=== PATIENT | female | born 1945 | race Caucasian/White ===

== ENCOUNTER 2017-01-04 19:19 | Inpatient (IN) | payer MEDICARE, OTHER ==
[2017-01-04] MEDS ORDERED: OXYBUTYNIN CHLOR5 M2 PO (19:23)
[2017-01-04] MEDS ORDERED: XANAX0.25 M1 PO (19:23)
[2017-01-04] MEDS ORDERED: BONIVA150 M1 PO (19:23)
[2017-01-04] MEDS ORDERED: ZOCOR80 M1 PO (19:24)
[2017-01-04] MEDS ORDERED: AMBIEN5 M1 PO (19:24)
[2017-01-04] MEDS ORDERED: ZOLOFT100 M1 PO (19:24)
[2017-01-04 19:38] LABS: BASO % 0.4 % (0-2); EOS % 2.8 % (0-7); EOSINOPHIL ABSOLUTE COUNT 0.2 tho/cmm (0.0-0.7); HCT-HEMATOCRIT 37.5 % (34.0-49.0); HGB-HEMOGLOBIN 12.7 gm/dl (12.0-15.5); IMMATURE GRANULOCYTES ABSOLUTE 0.02 tho/cmm (0-0.03); IMMATURE GRANULOCYTES PERCENT 0.2 % (0-0.3); LYMPH % 23.5 % (20-45); MCH (MEAN CORPUSCULAR HGB) 29.5 pg (28.0-32.0); MCHC MEAN CORPUSCULAR HGB CONC 33.9 % (32.0-36.0); MCV (MEAN CELL VOLUME) 87.2 fl (82.0-96.0); MEAN PLATELET VOLUME 9.6 cmc (9.4-12.4); MONO % 11.2 % (0-12); NEUTROPHIL ABSOLUTE COUNT 5.3 tho/cmm (1.6-8.0); NEUTROPHIL-AUTOMATED 5.3 tho/cmm (1.6-8.0); NEUTROPHILS % 61.9 % (40-80); PLATELET COUNT 202 tho/cmm (150-450); RED CELL DISTRIBUTION WIDTH 12.2 % (12.4-16.4); WHITE BLOOD COUNT 8.5 tho/cmm (4.0-10.0)
[2017-01-04 19:59] LABS: ANION GAP 11 mmol/L (0-20); BLOOD UREA NITROGEN 14 mg/dl (6-24); CALCIUM 9.7 mg/dl (8.5-10.5); CARBON DIOXIDE-VENOUS 27 mmol/L (22-32); CHLORIDE 103 mmol/l (96-110); CREATININE 0.89 mg/dl (0.50-1.10); GLUCOSE 112 mg/dL (70-110); POTASSIUM 4.2 mmol/L (3.7-5.1); SODIUM 137 mmol/L (135-145); eGFR VALUE FOR BLACK 75 mL/Min
[2017-01-05 05:20] LABS: BASO % 0.1 % (0-2); EOS % 0.6 % (0-7); EOSINOPHIL ABSOLUTE COUNT 0.1 tho/cmm (0.0-0.7); HGB-HEMOGLOBIN 12.1 gm/dl (12.0-15.5); IMMATURE GRANULOCYTES ABSOLUTE 0.01 tho/cmm (0-0.03); IMMATURE GRANULOCYTES PERCENT 0.1 % (0-0.3); LYMPH % 11.1 % (20-45); LYMPH ABSOLUTE COUNT 0.9 tho/cmm (0.8-4.5); MCH (MEAN CORPUSCULAR HGB) 29.6 pg (28.0-32.0); MCHC MEAN CORPUSCULAR HGB CONC 33.6 % (32.0-36.0); MEAN PLATELET VOLUME 9.8 cmc (9.4-12.4); MONO % 2.5 % (0-12); MONOCYTE ABSOLUTE COUNT 0.2 tho/cmm (0.0-1.2); NEUTROPHILS % 85.6 % (40-80); PLATELET COUNT 191 tho/cmm (150-450); RED BLOOD COUNT 4.09 mil/cmm (4.00-5.20); RED CELL DISTRIBUTION WIDTH 12.2 % (12.4-16.4); WHITE BLOOD COUNT 8.1 tho/cmm (4.0-10.0)
[2017-01-05 05:31] LABS: ANION GAP 11 mmol/L (0-20); BLOOD UREA NITROGEN 12 mg/dl (6-24); CALCIUM 8.7 mg/dl (8.5-10.5); CARBON DIOXIDE-VENOUS 27 mmol/L (22-32); CHLORIDE 104 mmol/l (96-110); CREATININE 0.86 mg/dl (0.50-1.10); GLUCOSE 133 mg/dL (70-110); POTASSIUM 4.4 mmol/L (3.7-5.1); SODIUM 138 mmol/L (135-145); eGFR VALUE FOR BLACK 78 mL/Min
--- NOTE | 2017-01-05 07:54 | NUR ---
VN ROUNDING AT 0740-PATIENT IS LAYING IN BED COMFORTABLY DENIES PAIN AT THIS TIME AND STATES THAT IT IS STAYING CONTROLLED. PATIENT STATES THAT SHE WAS NOT ABLE TO SLEEP WELL DUE TO OUR BEDS REPOSITIONING ON HER. I LET HER KNOW THE NURSES CAN ADJUST THE BED FOR ABOUT 6 HOURS AND TO LET THEM KNOW TO DO THAT TONIGHT BEFORE SHE GOES TO SLEEP. SHE HAD NO OTHER QUESTIONS OR CONCERNS AT THIS TIME
[2017-01-06] MEDS ORDERED: VIBRAMYCIN100 M1 PO (10:19)
[2017-01-06] MEDS ORDERED: CEFTIN250 MG/51 PO (10:21)
[2017-01-06] MEDS ORDERED: PREDNISONE10 M1 PO (10:22)
== END 2017-01-06 10:53 | DRG 195 ==
LOC: EDMED 19:19 → EMR2 22:37 → 5WD 01-05
PROVIDERS: Emergency Medicine; Internal Medicine; ADMIT Hospitalist
DX: J18.1 Lobar pneumonia, unspecified organism (principal); F32.9 Major depressive disorder, single episode, unspecified; F41.9 Anxiety disorder, unspecified; Z85.3 Personal history of malignant neoplasm of breast; E78.5 Hyperlipidemia, unspecified; R32 Unspecified urinary incontinence; R07.81 Pleurodynia
CPT/HCPCS: J1170; J1650; J2270; J2405; J2543; J2930; J7050; Q9967

== ENCOUNTER 2017-03-03 17:03 | Inpatient (IN) | payer MEDICARE, OTHER ==
[~2017-03-03 17:03] MED LIST: AMBIEN5 M1 PO; BONIVA150 M1 PO; CEFTIN250 MG/51 PO; OXYBUTYNIN CHLOR5 M2 PO; PREDNISONE10 M1 PO; VIBRAMYCIN100 M1 PO; XANAX0.25 M1 PO; ZOCOR80 M1 PO; ZOLOFT100 M1 PO
[2017-03-03] MEDS ORDERED: MYORISAN40 MG PO (17:15)
[2017-03-03 17:25] LABS: BASO % 0.4 % (0-2); EOS % 2.6 % (0-7); EOSINOPHIL ABSOLUTE COUNT 0.2 tho/cmm (0.0-0.7); HCT-HEMATOCRIT 34.1 % (34.0-49.0); HGB-HEMOGLOBIN 11.8 gm/dl (12.0-15.5); IMMATURE GRANULOCYTES ABSOLUTE 0.04 tho/cmm (0-0.03); IMMATURE GRANULOCYTES PERCENT 0.5 % (0-0.3); LYMPH % 24.2 % (20-45); LYMPH ABSOLUTE COUNT 1.9 tho/cmm (0.8-4.5); MCH (MEAN CORPUSCULAR HGB) 29.6 pg (28.0-32.0); MCHC MEAN CORPUSCULAR HGB CONC 34.6 % (32.0-36.0); MCV (MEAN CELL VOLUME) 85.7 fl (82.0-96.0); MEAN PLATELET VOLUME 9.9 cmc (9.4-12.4); MONO % 16.6 % (0-12); MONOCYTE ABSOLUTE COUNT 1.3 tho/cmm (0.0-1.2); NEUTROPHIL ABSOLUTE COUNT 4.3 tho/cmm (1.6-8.0); NEUTROPHIL-AUTOMATED 4.3 tho/cmm (1.6-8.0); NEUTROPHILS % 55.7 % (40-80); PLATELET COUNT 184 tho/cmm (150-450); RED BLOOD COUNT 3.98 mil/cmm (4.00-5.20); RED CELL DISTRIBUTION WIDTH 12.9 % (12.4-16.4); WHITE BLOOD COUNT 7.7 tho/cmm (4.0-10.0)
[2017-03-03 17:56] LABS: ANION GAP 12 mmol/L (0-20); BLOOD UREA NITROGEN 9 mg/dl (6-24); CALCIUM 9.4 mg/dl (8.5-10.5); CARBON DIOXIDE-VENOUS 25 mmol/L (22-32); CHLORIDE 107 mmol/l (96-110); CREATININE 0.83 mg/dl (0.50-1.10); GLUCOSE 144 mg/dL (70-110); SODIUM 140 mmol/L (135-145); eGFR VALUE FOR BLACK 82 mL/Min
[2017-03-03 18:09] LABS: POTASSIUM 4.1 mmol/L (3.7-5.1)
[2017-03-04 04:52] LABS: BASO % 0.6 % (0-2); EOSINOPHIL ABSOLUTE COUNT 0.2 tho/cmm (0.0-0.7); HCT-HEMATOCRIT 31.6 % (34.0-49.0); HGB-HEMOGLOBIN 10.5 gm/dl (12.0-15.5); IMMATURE GRANULOCYTES ABSOLUTE 0.02 tho/cmm (0-0.03); IMMATURE GRANULOCYTES PERCENT 0.3 % (0-0.3); LYMPH % 25.9 % (20-45); LYMPH ABSOLUTE COUNT 1.9 tho/cmm (0.8-4.5); MCH (MEAN CORPUSCULAR HGB) 28.8 pg (28.0-32.0); MCHC MEAN CORPUSCULAR HGB CONC 33.2 % (32.0-36.0); MCV (MEAN CELL VOLUME) 86.6 fl (82.0-96.0); MEAN PLATELET VOLUME 9.7 cmc (9.4-12.4); MONO % 17.1 % (0-12); MONOCYTE ABSOLUTE COUNT 1.2 tho/cmm (0.0-1.2); NEUTROPHIL ABSOLUTE COUNT 3.9 tho/cmm (1.6-8.0); NEUTROPHIL-AUTOMATED 3.9 tho/cmm (1.6-8.0); NEUTROPHILS % 53.1 % (40-80); PLATELET COUNT 197 tho/cmm (150-450); RED BLOOD COUNT 3.65 mil/cmm (4.00-5.20); RED CELL DISTRIBUTION WIDTH 13.1 % (12.4-16.4); WHITE BLOOD COUNT 7.3 tho/cmm (4.0-10.0)
[2017-03-04 05:56] LABS: ALB/GLOB RATIO 0.8 (0.8-2.0); ALKALINE PHOSPHATASE 56 U/L (33-138); ALT/SGPT 26 U/L (12-78); ANION GAP 11 mmol/L (0-20); AST/SGOT 16 U/L (10-40); BILIRUBIN,TOTAL 0.4 mg/dl (0-1.5); BLOOD UREA NITROGEN 8 mg/dl (6-24); CALCIUM 8.6 mg/dl (8.5-10.5); CARBON DIOXIDE-VENOUS 27 mmol/L (22-32); CHLORIDE 108 mmol/l (96-110); CREATININE 0.77 mg/dl (0.50-1.10); GLUCOSE 80 mg/dL (70-110); POTASSIUM 3.8 mmol/L (3.7-5.1); SODIUM 142 mmol/L (135-145); eGFR VALUE FOR BLACK 89 mL/Min
--- NOTE | 2017-03-04 13:07 | NUR ---
VIRTUAL CARE NOTE: CHECKED IN WITH PT AT THIS TIME. SHE IS VERY ANXIOUS TO DISCHARGE. PULM DOCTOR HAS NOT ROUNDED ON HER YET. GAVE HER SOME INFORMATION REGARDING HER DIAGNOSIS AND THEN D/W HER THE DC PLAN. WILL GET HER PAPERWORK DONE MUCH POSSIBLE IT SOUNDS LIKE SHE'S PRETTY INSISTANT ON DISCHARGING TODAY. WILL CONTINUE TO MONITOR. ELECTRONIC CHART REVIEWED.
[2017-03-04 18:35] LABS: BODY FLUID APPEARANCE CLOUDY (CLEAR); BODY FLUID COLOR YELLOW (COLORLESS); BODY FLUID RBC COUNT 1000 cmm (0); BODY FLUID TYPE PLEURAL; BODY FLUID VOLUME 270 ml
[2017-03-04 18:36] LABS: BODY FLUID WBC COUNT 15461 cmm
[2017-03-04 18:37] LABS: BODY FLUID TYPE PLEURAL
[2017-03-04 18:54] LABS: BODY FLUID LYMPHOCYTES 1 %; BODY FLUID MACROPHAGES 28 %; BODY FLUID NEUTROPHILS 71 %
[2017-03-04 19:47] LABS: PROCALCITONIN <0.05 ng/ml (0.05-0.09)
--- NOTE | 2017-03-05 22:04 | NUR ---
VN/LEADER ROUNDING-AT 2029 PATIENT WAS NOT IN ROOM-WILL TRY AGAIN LATER.
[2017-03-06] MEDS ORDERED: [UNRECOGNIZED DRUG - OTHER] PO (17:04)
--- NOTE | 2017-03-06 17:17 | NUR ---
VIRTUAL CARE NOTE: PT DRESSED READY FOR DISCHARGE TEACHING. INFORMATION GIVEN TO PT, DENIES QUESTIONS OR CONCERNS. INFORMED FLOOR NURSE DISCHARGE TEACHING DONE.
== END 2017-03-06 17:21 | DRG 194 ==
LOC: EDMED 17:03 → EMR2 21:05 → 5WD 22:11
PROVIDERS: Emergency Medicine; Internal Medicine; Internal Medicine Pulmonary Disease; Radiology Diagnostic Radiology; ADMIT Hospitalist
PROC: 5A09357 Assistance with Respiratory Ventilation, Less than 24 Consecutive Hours, Continuous Positive Airway Pressure (ICD-10-PCS; 2017-03-03)
PROC: 0W9B3ZZ Drainage of Left Pleural Cavity, Percutaneous Approach (ICD-10-PCS; principal; 2017-03-04)
DX: J18.9 Pneumonia, unspecified organism (principal); J91.8 Pleural effusion in other conditions classified elsewhere; E78.5 Hyperlipidemia, unspecified; Z85.3 Personal history of malignant neoplasm of breast; Z92.21 Personal history of antineoplastic chemotherapy; Z92.3 Personal history of irradiation; M81.0 Age-related osteoporosis without current pathological fracture; Z88.1 Allergy status to other antibiotic agents; G47.00 Insomnia, unspecified; F32.9 Major depressive disorder, single episode, unspecified; F41.9 Anxiety disorder, unspecified; J45.909 Unspecified asthma, uncomplicated; M25.512 Pain in left shoulder
CPT/HCPCS: J0295; J2270; J2930; J7030; J7050